=== PATIENT | male | born 2000 | race African-American/Black ===

== ENCOUNTER 2019-04-28 12:34 | Emergency (ER) | payer MEDICAID, OTHER ==
[~2019-04-28] VITALS: Ht 177.8 cm; Wt 64.4 kg
[2019-04-28 12:52] VITALS: BP 121/72
--- NOTE | 2019-04-28 13:15 | RAD ---
EXAM: Lumbar spine, 3 views; thoracic spine, 3 views. HISTORY: Pain. COMPARISON: None. FINDINGS: 3 views of the thoracic and lumbar spine are obtained. There is mild levocurvature centered at the thoracolumbar junction. There is mild retrolisthesis at multiple lumbar levels, likely projectional. The vertebral patricia are normal in height and the disc spaces are preserved. There is elongated right L1 transverse process, a normal variant. IMPRESSION: 1. No acute osseous finding. 2. Mild levocurvature centered at the thoracolumbar junction. Electronically signed by: Kaye Campbell MD (04/28/2019 1:12 PM) [place] [id number]
[2019-04-28] MEDS ORDERED: CYCL10TA2 PO (13:37)
[2019-04-28] MEDS ORDERED: NAPR-514 PO (13:37)
--- NOTE | 2019-04-28 13:38 | PHYS DOC ---
Past Medical History Past Medical History: No Pertinent History Past Surgical History: No Surgical History Alcohol Use: None Drug Use: None Adult General Chief Complaint Chief Complaint: LOWER BACK PAIN OR INJURY HPI HPI Patient is a 19-year-old male with no significant medical history presenting to the ED today complaining of 7 out of 10 sharp intermittent left low back pain nonradiating in nature that began 1 day ago. Patient denies any known injury. Denies anything exacerbating or relieving his symptoms. Denies any numbness or tingling to bilateral lower extremities. Review of Systems Review of Systems Constitutional: Denies fever or chills [] : Denies dysuria or hematuria [] Musculoskeletal: Reports left low back pain Integument: Denies rash or skin lesions [] Neurologic: Denies headache, focal weakness or sensory changes [] All other systems were reviewed and found to be within normal limits, except as documented in this note. Allergies Allergies Allergies Coded Allergies Type Severity Reaction Last Updated Verified No Known Drug Allergies 02/15/15 No Physical Exam Physical Exam Constitutional: Well developed, well nourished, no acute distress, non-toxic appearance. [] Abdomen: Bowel sounds normal, soft, no tenderness, no masses, no pulsatile masses. [] Skin: Warm, dry, no erythema, no rash. [] Back: Diffuse paraspinal muscle tenderness the left lumbar spine, no midline lumbar spine tenderness, no CVA tenderness. [] Extremities: No tenderness, no cyanosis, no clubbing, ROM intact, no edema. [] Neurologic: Alert and oriented X 3, normal motor function, normal sensory function, no focal deficits noted. [] Psychologic: Affect normal, judgement normal, mood normal. [] Current Patient Data Vital Signs Vital Signs Date Time Temp Pulse Resp B/P (MAP) Pulse Ox O2 Delivery O2 Flow Rate FiO2 04/28/19 12:52 98.3 101 16 121/72 (88) 99 Room Air 98.3 EKG EKG [] Radiology/Procedures Radiology/Procedures []PROCEDURE: LUMBAR SPINE 2-3V EXAM: Lumbar spine, 3 views; thoracic spine, 3 views. HISTORY: Pain. COMPARISON: None. FINDINGS: 3 views of the thoracic and lumbar spine are obtained. There is mild levocurvature centered at the thoracolumbar junction. There is mild retrolisthesis at multiple lumbar levels, likely projectional. The vertebral patricia are normal in height and the disc spaces are preserved. There is elongated right L1 transverse process, a normal variant. IMPRESSION: 1. No acute osseous finding. 2. Mild levocurvature centered at the thoracolumbar junction. Electronically signed by: Kaye Campbell MD (04/28/2019 1:12 PM) [id number] DICTATED and SIGNED BY: KAYE CAMPBELL MD DATE: 04/28/19 2177 Course & Med Decision Making Course & Med Decision Making Pertinent Labs and Imaging studies reviewed. (See chart for details) This is a 19-year-old male patient presented to the ED today with left low back pain, no known injury. Thoracic and lumbar spine x-rays are negative for any acute findings. Discharged with cyclobenzaprine and naproxen. Ice elevation encouraged. Follow-up with PCP in 1-2 weeks. Dragon Disclaimer Dragon Disclaimer This electronic medical record was generated, in whole or in part, using a voice recognition dictation system. Departure Departure Impression: Primary Impression: Low back pain Disposition: 01 HOME, SELF-CARE Condition: STABLE Referrals: NO PCP (PCP) Follow-up in one week Patient Instructions: Back Pain, Adult, [id number] Additional Instructions: You were evaluated in the emergency room for back pain, your x-rays were negative for any acute findings. Try to ice and elevate the affected area. Take the prescribed medications as needed for pain. Follow-up with a primary care doctor in 1-2 weeks. Scripts Naproxen (NAPROXEN) 500 Mg Tablet 1 TAB PO BID, #20 TAB Prov: FREYA MENON APRN 04/28/19 Cyclobenzaprine Hcl (CYCLOBENZAPRINE HCL) 10 Mg Tablet 1 TAB PO TID, #30 TAB Prov: FREYA MENON APRN 04/28/19 Problem Qualifiers Primary Impression: Low back pain Chronicity: acute Back pain laterality: left Sciatica presence: without sciatica Qualified Codes: M54.5 - Low back pain FREYA MENON APRN Apr 28, 2019 13:38
[2019-04-28 13:53] LABS: BILIRUBIN,URINE NEGATIVE (NEG); CLARITY,URINE CLEAR; COLOR,URINE YELLOW; NITRITE,URINE NEGATIVE (NEG); PROTEIN,URINE NEGATIVE (NEG-TRACE); UROBILINOGEN,URINE 0.2 mg/dL (0.2 mg/dL)
[2019-04-28 13:59] LABS: BARBITURATES NEG (NEG); BENZODIAZEPINES NEG (NEG); CANNABINOIDS NEG (NEG); COCAINE NEG (NEG); METHADONE NEG (NEG); OPIATES NEG (NEG); PHENCYCLIDINE NEG (NEG)
[2019-04-28 14:03] LABS: AMPHETAMINE/METHAMPHETAMINE NEG (NEG); BACTERIA,URINE 0 /HPF (0-FEW); SQUAMOUS EPITHELIAL CELL,UR FEW /LPF
[2019-04-28 14:04] LABS: RBC,URINE 0 /HPF (0-2)
== END 2019-04-28 13:56 | disposition home or self-care (01) ==
LOC: ER 12:34
DX: M54.5 Low back pain (principal); M54.6 Pain in thoracic spine
CPT/HCPCS: 72072; 72100; 80307; 81001; 99285